=== PATIENT | female | born 1985 | race Caucasian/White ===

== ENCOUNTER 2017-06-29 10:39 | Inpatient (IN) | payer SELFPAY ==
[~2017-06-29] VITALS: Ht 167.6 cm; Wt 80.5 kg
[~2017-06-29 10:39] MED LIST: ACET325 PO; ADVI200C9 PO; SULF1TAB47 PO; TYLE3 PO
[2017-06-29 10:40] VITALS: BP 135/75; PULSE 100; RESP 20; TEMP 98.4; O2SAT 97
[2017-06-29] MEDS ORDERED: IOHEXOL 350 MG/ML 10 ML VIAL (for RAD DIAG) IVCONTRAST ONE (10:40)
[2017-06-29] MEDS ORDERED: ISOT20CA PO (10:58)
[2017-06-29] MEDS ORDERED: SODIUM CHLORIDE 0.9% FLUSH 10 ML FLUSH IVF PRN (11:15)
[2017-06-29] MEDS ORDERED: MORPHINE SULFATE 4 MG/ML INJ IV PUSH ONE (11:15)
[2017-06-29] MEDS ORDERED: ONDANSETRON HCL 4 MG/2 ML VIAL IM ONE (11:15)
--- NOTE | 2017-06-29 11:19 | PD ---
HPI . Abdominal pain Chief Complaint: GI Complaint Time Seen by Provider: 11:15 Travel History International Travel<30 days: No Contact w/Intl Traveler<30days: No Traveled to known affect area: No History of Present Illness HPI Patient presents complaining with abdominal pain. Onset was about a week and a half ago. It became acutely worse approximately 3 days ago. It is localized to the right lower quadrant. It is exacerbated by drinking hot tea certain movements. She denies any associated urinary tract symptoms. She denies any vaginal discharge or abnormal vaginal bleeding. She reports a normal appetite and no associated vomiting or diarrhea. [facility] Past Medical History Medical History: Denies Significant Hx Asthma: Yes ?: Not Past Surgical History Surgical History: No Previous Surgery Social History Alcohol Use: No Tobacco Use: Yes (1 PPD) Substance Use: No Allergies-Medications (Allergen,Severity, Reaction): Coded Allergies: No Known Allergies (Unverified , 06/29/17) Reported Meds & Prescriptions Reported Meds & Active Scripts Active Reported Zenatane (Isotretinoin) 20 Mg Cap 20 Mg PO DAILY Review of Systems Except as stated in HPI: all other systems reviewed are Neg General / Constitutional: No: Fever, Chills Gastrointestinal: Positive: Abdominal Pain, No: Nausea, Vomiting, Diarrhea, Loss of Appetite Genitourinary: Positive: Pelvic Pain, No: Urgency, Frequency, Dysuria, Discharge, Vaginal Bleeding Physical Exam Narrative GENERAL: Awake and alert and in no acute distress. SKIN: Warm and dry without rash or lesions. HEAD: Normocephalic/atraumatic. EYES: Pupils are equal. Extraocular movements are intact. NECK: Supple with full range of motion. CARDIOVASCULAR: Regular rate and rhythm. RESPIRATORY: Nonlabored respirations. ABDOMEN: Suprapubic tenderness, right greater than left. MUSCULOSKELETAL: Atraumatic. NEUROLOGICAL: Nonfocal. PSYCHIATRIC: Appropriate mood and affect. Data Data Last Documented VS Vital Signs Date Time Temp Pulse Resp B/P (MAP) Pulse Ox O2 Delivery O2 Flow Rate FiO2 06/29/17 10:40 98.4 100 20 135/75 (95) 97 Room Air Orders Orders Complete Blood Count With Diff (06/29/17 11:15) Basic Metabolic Panel (Bmp) (06/29/17 11:15) Gc And Chlamydia Pcr (06/29/17 11:15) Wet Prep Profile (06/29/17 11:15) Urinalysis - C+S If Indicated (06/29/17 11:15) Sodium Chloride 0.9% Flush (Ns Flush) (06/29/17 11:15) Ondansetron Inj (Zofran Inj) (06/29/17 11:15) Ed Urine Pregnancytest Poc (06/29/17 11:15) Morphine Inj (Morphine Inj) (06/29/17 11:15) MDM Medical Decision Making Medical Screen Exam Complete: Yes Emergency Medical Condition: Yes Differential Diagnosis Differential diagnosis of pelvic pain includes but is not limited to UTI, PID, ectopic , spontaneous AB, constipation, viral illness Narrative Course This patient presents with pelvic pain. It is localized to the right side than the left side. We will start with a MACHINE BRUSHER evaluation. If the etiology of her pelvic pain is not discovered by a MACHINE BRUSHER evaluation, she will probably need a CT. Diagnosis Primary Impression: Pelvic pain in female Toyin Dodson MD Jun 29, 2017 11:19
[2017-06-29 12:32] LABS: BLOOD, URINE NEG (NEG); GLUCOSE,URINE NEG (NEG); KETONE, URINE NEG (NEG); NITRITE,URINE NEG (NEG); PH, URINE 6.5 (5.0-8.5); SQUAMOUS EPITHELIAL CELL URINE <1 /hpf (0-5); URINE COLOR LIGHT-YELLOW (YELLW/STRAW)
[2017-06-29 12:34] LABS: COMMENT (UR) CULT NOT INDICATED; CULTURE IF INDICATED CULT NOT INDICATED
[2017-06-29 12:36] LABS: BASOPHIL % 0.3 % (0.0-2.0); EOSINOPHIL # 0.1 TH/MM3 (0-0.4); EOSINOPHIL % 0.9 % (0.0-4.0); HEMATOCRIT 43.4 % (35.0-46.0); HEMO FLAGS DIFF FINAL; LYMPH % 17.1 % (9.0-44.0); LYMPHOCYTE # 1.9 TH/MM3 (1.0-4.8); MEAN CELL VOLUME 85.6 FL (80.0-100.0); MEAN CORPUSCULAR HGB CONC 33.9 % (32.0-36.0); MONO % 8.7 % (0.0-8.0); PLATELET COUNT 332 TH/MM3 (150-450); RED BLOOD COUNT 5.07 MIL/MM3 (4.00-5.30); RED CELL DISTRIBUTION WIDTH 12.7 % (11.6-17.2); WHITE BLOOD COUNT 10.9 TH/MM3 (4.0-11.0)
[2017-06-29 12:59] LABS: BICARBONATE 25.9 MEQ/L (21.0-32.0); POTASSIUM 4.4 MEQ/L (3.5-5.1)
[2017-06-29] MEDS ORDERED: ONDANSETRON HCL 4 MG/2 ML VIAL IV PUSH ONE ×2 (13:15→17:30)
--- NOTE | 2017-06-29 14:14 | PD ---
Physical Exam Date Seen by Provider: Jun 29, 2017 Time Seen by Provider: 12:00 Narrative GENERAL: Well-nourished, well-developed female in no acute distress. Afebrile. Ambulatory. SKIN: Focused skin assessment warm/dry. HEAD: Normocephalic. EYES: No scleral icterus. No injection or drainage. NECK: Supple, trachea midline. No JVD or lymphadenopathy. CARDIOVASCULAR: Regular rate and rhythm without murmurs, gallops, or rubs. RESPIRATORY: Breath sounds equal bilaterally. No accessory muscle use. GASTROINTESTINAL: Abdomen soft, nondistended. Moderate tenderness to palpation of the right lower quadrant. Negative heel tap test. No peritoneal signs. No significant CVA tenderness. GENITOURINARY: Normal external genitalia without lesions or erythema. Vaginal vault with moderate greenish, yellow drainage. Cervical os was closed with the same drainage. No cervical motion tenderness. Uterus tender on the right aspect. Nonenlarged. Bilateral adnexa nontender without masses. Data Data Last Documented VS Vital Signs Date Time Temp Pulse Resp B/P (MAP) Pulse Ox O2 Delivery O2 Flow Rate FiO2 06/29/17 19:02 85 17 123/76 (92) 100 Room Air 06/29/17 10:40 98.4 Orders Orders Complete Blood Count With Diff (06/29/17 11:15) Basic Metabolic Panel (Bmp) (06/29/17 11:15) Gc And Chlamydia Pcr (06/29/17 11:15) Wet Prep Profile (06/29/17 11:15) Urinalysis - C+S If Indicated (06/29/17 11:15) Sodium Chloride 0.9% Flush (Ns Flush) (06/29/17 11:15) Ondansetron Inj (Zofran Inj) (06/29/17 11:15) Ed Urine Pregnancytest Poc (06/29/17 11:15) Morphine Inj (Morphine Inj) (06/29/17 11:15) Ct Abd/Pel W Iv Contrast(Rout) (06/29/17 ) Ondansetron Inj (Zofran Inj) (06/29/17 13:15) Iohexol 350 Inj (Omnipaque 350 Inj) (06/29/17 10:40) Azithromycin Powd Pack (Zithromax Powd P (06/29/17 15:45) Ceftriaxone Inj (Rocephin Inj) (06/29/17 15:45) Lidocaine 1% Inj (50 Ml) (Xylocaine 1% I (06/29/17 15:45) Oral Contrast - Adult (06/29/17 16:02) Oral Contrast - Adult (06/29/17 16:15) Diatrizoate Liq ( Gastrogopi Liq) (06/29/17 16:20) Ondansetron Inj (Zofran Inj) (06/29/17 17:30) Us Pelvis Comp W Transvaginal (06/29/17 ) Consult Bi Nfs (06/29/17 ) Levofloxacin 750 Mg Premix Inj (Levaquin (06/29/17 19:15) Metronidazole 500 Mg Inj (Flagyl 500 Mg (06/29/17 19:15) Nicotine 21 Mg Patch.24 Hr (Habitrol 21 (06/29/17 19:30) Consult General Surgery (06/29/17 ) Admit Order (Ed Use Only) (06/29/17 ) Vital Signs (Adult) Q4H (06/29/17 20:50) Diet Npo (06/30/17 Breakfast) Activity Oob With Assistance (06/29/17 20:50) Notify Dr: Other (06/29/17 20:50) Diet Heart Healthy (06/29/17 Dinner) Labs Laboratory Tests Test 06/29/17 12:04 06/29/17 12:10 06/29/17 14:10 White Blood Count 10.9 TH/MM3 Red Blood Count 5.07 MIL/MM3 Hemoglobin 14.7 GM/DL Hematocrit 43.4 % Mean Corpuscular Volume 85.6 FL Mean Corpuscular Hemoglobin 29.0 PG Mean Corpuscular Hemoglobin Concent 33.9 % Red Cell Distribution Width 12.7 % Platelet Count 332 TH/MM3 Mean Platelet Volume 7.7 FL Neutrophils (%) (Auto) 73.0 % Lymphocytes (%) (Auto) 17.1 % Monocytes (%) (Auto) 8.7 % Eosinophils (%) (Auto) 0.9 % Basophils (%) (Auto) 0.3 % Neutrophils # (Auto) 8.0 TH/MM3 Lymphocytes # (Auto) 1.9 TH/MM3 Monocytes # (Auto) 0.9 TH/MM3 Eosinophils # (Auto) 0.1 TH/MM3 Basophils # (Auto) 0.0 TH/MM3 CBC Comment DIFF FINAL Differential Comment Blood Urea Nitrogen 6 MG/DL Creatinine 0.49 MG/DL Random Glucose 86 MG/DL Calcium Level 9.1 MG/DL Sodium Level 137 MEQ/L Potassium Level 4.4 MEQ/L Chloride Level 104 MEQ/L Carbon Dioxide Level 25.9 MEQ/L Anion Gap 7 MEQ/L Estimat Glomerular Filtration Rate 146 ML/MIN Urine Color LIGHT-YELLOW Urine Turbidity CLEAR Urine pH 6.5 Urine Specific [place] 1.004 Urine Protein NEG mg/dL Urine Glucose (UA) NEG mg/dL Urine Ketones NEG mg/dL Urine Occult Blood NEG Urine Nitrite NEG Urine Bilirubin NEG Urine Urobilinogen LESS THAN 2.0 MG/DL Urine Leukocyte Esterase NEG Urine WBC LESS THAN 1 /hpf Urine Squamous Epithelial Cells <1 /hpf Microscopic Urinalysis Comment CULT NOT INDICATED Clue Cells (Wet Prep) NONE SEEN Vaginal Trichomonas (Wet Prep) NONE SEEN Vaginal Yeast (Wet Prep) NONE SEEN Chlamydia trachomatis DNA (PCR) DETECTED Neisseria gonorrhoeae DNA (PCR) NOT DETECTED MDM Medical Record Reviewed: Yes Supervised Visit with OMA: Yes Differential Diagnosis Pelvic pain, UTI, STD, PID, appendicitis unlikely Narrative Course Patient signed out to me pending labs and imaging results. In short, this is a 32-year-old female presents to the emergency room for evaluation of right lower quadrant abdominal pain for the past week. States it is especially worsened over the past several days. She denies any associated abnormal vaginal discharge, fever, chills, nausea, vomiting, or diarrhea. Vital signs stable. Physical exam reveals moderate tenderness to palpation of the right lower quadrant. No peritoneal signs or rebound tenderness. CBC, BMP, and UA are unremarkable. CT with IV contrast shows 3.7 cm complex masslike area in the right lower quadrant with surrounding infiltrate change. This is concerning for an abscess. The abscess is not clearly seen. An appendiceal abscess could have this appearance. This area appears separate from the right adnexa. Radiologist recommended second CT with oral contrast to better evaluate for possible appendicitis versus tubo-ovarian abscess. Ultrasound of the pelvic region shows a vague complex, 3 cm complex mass in the right lower quadrant that appears to be separate from the ovary. Second CT with oral contrast shows. I spoke to the surgeon seasonal sales associate, Dr. Galaviz, who recommends admission to medical service with consultation to surgery. He recommends starting patient on Levaquin and Flagyl. Patient will be admitted to the embedded processor, Dr. Cadena. She agrees to accept the patient to her service. Diagnosis Primary Impression: Appendiceal abscess Admitting Information Admitting Physician Requests: Admit Condition: Stable Julia Moraes Jun 29, 2017 14:14
[2017-06-29] MEDS ORDERED: AZITHROMYCIN PWD FOR SUSP 1 GM PACKET PO ONE (15:45)
[2017-06-29] MEDS ORDERED: cefTRIAXone 250 MG VIAL IM ONE (15:45)
[2017-06-29] MEDS ORDERED: LIDOCAINE HCL 1% 50 ML VIAL IM ONE (15:45)
[2017-06-29] MEDS ORDERED: DIATRIZOATE MEGLUM/DIATRIZOATE SOD 9 ML CUP ONE (16:20)
[2017-06-29 18:09] LABS: CHLAMYDIA PCR DETECTED (NOT DETECT); NEISSERIA PCR NOT DETECTED (NOT DETECT)
--- NOTE | 2017-06-29 18:20 | RADRPT ---
EXAM DATE/TIME: 06/29/2017 17:28 [facility] COMPARISON: CT ABDOMEN & PELVIS W CONTRAST, June 29, 2017, 14:58. INDICATIONS : Abscess. MEDICAL HISTORY : Asthma. SURGICAL HISTORY : . ENCOUNTER: Initial ACUITY: 1 day PAIN SCORE: 2/10 LOCATION: Bilateral pelvis MEASUREMENTS: UTERUS: 6.0 x 5.2 x 3.2 cm ENDOMETRIAL STRIPE: 6 mm RIGHT OVARY: 3.7 x 2.7 x 2.2 cm LEFT OVARY: 2.4 x 1.9 x 1.6 cm FINDINGS: UTERUS: The myometrium has homogeneous echotexture without mass. RIGHT OVARY: On the transabdominal images, there is a vague 3 cm complex mass seen in the right lower quadrant. On the transvaginal examination, the right ovary appears normal. A complex mass is not seen on the dixon svaginal examination. LEFT OVARY: Ovary contains no mass or significant cystic lesion. MISCELLANEOUS: There is minimal free fluid seen. CONCLUSION: 1. Vague complex 3 cm mass in the right lower quadrant seen on the transabdominal images. Its is nons pecific. The right ovary appears normal on the transvaginal examination suggesting the complex area i s not related to the right ovary. An inflamed appendix or fallopian tube could conceivably have this appearance. It is of uncertain etiology on this ultrasound examination. 2. The uterus and left ovary appear normal. Jeramy Monsalve MD on June 29, 2017 at 18:12 Board Certified Radiologist. This report was verified electronically.
--- NOTE | 2017-06-29 18:51 | RADRPT ---
EXAM DATE/TIME: 06/29/2017 14:58 [facility] COMPARISON: No previous studies available for comparison. INDICATIONS : Lower diffuse abdomen pain for four days. IV CONTRAST: 81 cc Omnipaque 300 (iohexol) IV ORAL CONTRAST: No oral contrast ingested. RADIATION DOSE: 6.91 CTDIvol (mGy) MEDICAL HISTORY : Asthma. SURGICAL HISTORY : None. ENCOUNTER: Initial ACUITY: 4 - 6 days PAIN SCALE: 6/10 LOCATION: Right lower quadrant TECHNIQUE: Volumetric scanning of the abdomen and pelvis was performed. Using automated exposure control and ad justment of the mA and/or kV according to patient size, radiation dose was kept as low as reasonably achievable to obtain optimal diagnostic quality images. DICOM format image data is available electro nically for review and comparison. FINDINGS: LOWER LUNGS: The visualized lower lungs are clear. LIVER: Homogeneous density without lesion. There is no dilation of the biliary tree. No calcified gallston es. SPLEEN: Normal size without lesion. PANCREAS: Within normal limits. KIDNEYS: Normal in size and shape. There is no mass, stone or hydronephrosis. ADRENAL GLANDS: Within normal limits. VASCULAR: There is no aortic aneurysm. BOWEL/MESENTERY: There is a 3.7 x 2.5 cm complex mass seen in the right lower quadrant with surrounding inflammatory c hange. This could be an abscess. The appendix is not seen. This area is adjacent to the cecum. This m ass is separate from the ovary. Right ovary appears normal in size and the more inferior posterior as pect of right pelvis. ABDOMINAL WALL: Within normal limits. RETROPERITONEUM: There is no lymphadenopathy. BLADDER: No wall thickening or mass. REPRODUCTIVE: The ovaries appear normal in size. There is moderate free fluid in the pelvis. INGUINAL: There is no lymphadenopathy or hernia. MUSCULOSKELETAL: Within normal limits for patient age. CONCLUSION: 3.7 cm complex masslike area in the right lower quadrant with surrounding inflammatory change. This c oncerning for an abscess. The appendix is not clearly seen. An appendiceal abscess could have this ap parent. This area appears separate from the right adnexa. Jeramy Monsalve MD on June 29, 2017 at 18:45 Board Certified Radiologist. This report was verified electronically.
[2017-06-29 19:02] VITALS: BP 123/76; PULSE 85; RESP 17; O2SAT 100
[2017-06-29] MEDS ORDERED: metroNIDAZOLE 500 MG INJ 100 ML IV ONE (19:15)
[2017-06-29] MEDS ORDERED: LEVOFLOXACIN 750 MG PREMIX INJ 150 ML IV ONE (19:15)
[2017-06-29] MEDS ORDERED: NICOTINE 21 MG/24 HR PATCH T-DERMAL ONE (19:30)
--- NOTE | 2017-06-29 21:19 | HHI.HP ---
HPI Service Critical Care Medicine Primary Care Physician No Primary Care Physician Admission Diagnosis appendiceal abscess Diagnosis: Travel History International Travel<30 Days: No Contact w/Intl Traveler <30 Da: No Traveled to Known Affected Are: No History of Present Illness 32-year-old female with past medical history of childhood asthma who presents to [facility] emergency department with 1 week history of gradual onset right lower quadrant pain. She states it waxes and wanes in severity. It is worse with cough and is tender to palpation. She says she previously had no nausea or vomiting associated with this but she did vomit after trying to take po contrast tonight. She denies dysuria, fever, vaginal discharge. ED pelvic exam revealed green vaginal discharge without cervical motion tenderness. Cervical swab + for chlamydia. Pelvic her sound demonstrates 3 cm mass in the right lower quadrant. Right ovary appeared normal. This was felt to have been related to inflamed appendix versus salpingitis. CT abdomen and pelvis demonstrates 3.7 cm complex mass in the right lower quadrant. Appendix was not clearly seen. It appears separate from the right adnexa. test is negative Review of Systems Gastrointestinal: COMPLAINS OF: Abdominal pain, Nausea, Vomiting Past Family Social History Allergies: Coded Allergies: No Known Allergies (Unverified , 06/29/17) Past Medical History Childhood asthma Acne He has had 1 prior with elective Past Surgical History None Reported Medications Accutane Family History Father has hypertension Maternal grandmother has diabetes Social History Smokes a pack of cigarettes per day No alcohol or illicit drug use Works at a [employer] Physical Exam Vital Signs Vital Signs Date Time Temp Pulse Resp B/P (MAP) Pulse Ox O2 Delivery O2 Flow Rate FiO2 06/29/17 19:02 85 17 123/76 (92) 100 Room Air 06/29/17 13:14 15 06/29/17 10:40 98.4 100 20 135/75 (95) 97 Room Air Physical Exam GENERAL: Well-nourished, well-developed alert female who is sitting up in ED gurney. She is tearful SKIN: Warm and dry. No rash HEAD: Atraumatic. Normocephalic. EYES: Pupils equal and round. No scleral icterus. No injection or drainage. ENT: No nasal bleeding or discharge. Mucous membranes pink and moist. NECK: Trachea midline. No JVD. CARDIOVASCULAR: Regular rate and rhythm. No murmurs rubs or gallops. RESPIRATORY: No accessory muscle use. Clear to auscultation. Breath sounds equal bilaterally. On room air GASTROINTESTINAL: Abdomen soft. Tender to palpation right lower quadrant. No rebound or guarding. No peritoneal signs. Bowel sounds present. MUSCULOSKELETAL: Extremities without clubbing, cyanosis, or edema. No obvious deformities. NEUROLOGICAL: Awake and alert. No obvious cranial nerve deficits. Motor grossly within normal limits. Normal speech. Laboratory Laboratory Tests Test 06/29/17 12:04 06/29/17 12:10 06/29/17 14:10 White Blood Count 10.9 Red Blood Count 5.07 Hemoglobin 14.7 Hematocrit 43.4 Mean Corpuscular Volume 85.6 Mean Corpuscular Hemoglobin 29.0 Mean Corpuscular Hemoglobin Concent 33.9 Red Cell Distribution Width 12.7 Platelet Count 332 Mean Platelet Volume 7.7 Neutrophils (%) (Auto) 73.0 Lymphocytes (%) (Auto) 17.1 Monocytes (%) (Auto) 8.7 Eosinophils (%) (Auto) 0.9 Basophils (%) (Auto) 0.3 Neutrophils # (Auto) 8.0 Lymphocytes # (Auto) 1.9 Monocytes # (Auto) 0.9 Eosinophils # (Auto) 0.1 Basophils # (Auto) 0.0 CBC Comment DIFF FINAL Differential Comment Blood Urea Nitrogen 6 Creatinine 0.49 Random Glucose 86 Calcium Level 9.1 Sodium Level 137 Potassium Level 4.4 Chloride Level 104 Carbon Dioxide Level 25.9 Anion Gap 7 Estimat Glomerular Filtration Rate 146 Urine Color LIGHT-YELLOW Urine Turbidity CLEAR Urine pH 6.5 Urine Specific [place] 1.004 Urine Protein NEG Urine Glucose (UA) NEG Urine Ketones NEG Urine Occult Blood NEG Urine Nitrite NEG Urine Bilirubin NEG Urine Urobilinogen LESS THAN 2.0 Urine Leukocyte Esterase NEG Urine WBC LESS THAN 1 Urine Squamous Epithelial Cells <1 Microscopic Urinalysis Comment CULT NOT INDICATED Clue Cells (Wet Prep) NONE SEEN Vaginal Trichomonas (Wet Prep) NONE SEEN Vaginal Yeast (Wet Prep) NONE SEEN Chlamydia trachomatis DNA (PCR) DETECTED Neisseria gonorrhoeae DNA (PCR) NOT DETECTED Result Diagram: 06/29/17 1204 06/29/17 1204 Caprini VTE Risk Assessment Caprini VTE Risk Assessment: Mod/High Risk (score >= 2) Caprini Risk Assessment Model Point Value = 1 Point Value = 2 Point Value = 3 Point Value = 5 Age 41-60 Minor surgery BMI > 25 kg/m2 Swollen legs Varicose veins or History of unexplained or recurrent spontaneous Oral contraceptives or hormone replacement Sepsis (< 1 month) Serious lung disease, including pneumonia (< 1 month) Abnormal pulmonary function Acute myocardial infarction Congestive heart failure (< 1 month) History of inflammatory bowel disease Medical patient at bed rest Age 61-74 Arthroscopic surgery Major open surgery (> 45 min) Laparoscopic surgery (> 45 min) Malignancy Confined to bed (> 72 hours) Immobilizing plaster cast Central venous access Age >= 75 History of VTE Family history of VTE Factor V Leiden Prothrombin [id number] Lupus anticoagulant Anticardiolipin antibodies Elevated serum homocysteine Heparin-induced thrombocytopenia Other congenital or acquired thrombophilia Stroke (< 1 month) Elective arthroplasty Hip, pelvis, or leg fracture Acute spinal cord injury (< 1 month) Prophylaxis Regimen Total Risk Factor Score Risk Level Prophylaxis Regimen 0-1 Low Early ambulation 2 Moderate Order ONE of the following: *Sequential Compression Device (SCD) *Heparin 5000 units SQ BID 3-4 Higher Order ONE of the following medications: *Heparin 5000 units SQ TID *Enoxaparin/Lovenox 40 mg SQ daily (WT < 150 kg, CrCl > 30 mL/min) *Enoxaparin/Lovenox 30 mg SQ daily (WT < 150 kg, CrCl > 10-29 mL/min) *Enoxaparin/Lovenox 30 mg SQ BID (WT < 150 kg, CrCl > 30 mL/min) AND/OR *Sequential Compression Device (SCD) 5 or more Highest Order ONE of the following medications: *Heparin 5000 units SQ TID (Preferred with Epidurals) *Enoxaparin/Lovenox 40 mg SQ daily (WT < 150 kg, CrCl > 30 mL/min) *Enoxaparin/Lovenox 30 mg SQ daily (WT < 150 kg, CrCl > 10-29 mL/min) *Enoxaparin/Lovenox 30 mg SQ BID (WT < 150 kg, CrCl > 30 mL/min) AND *Sequential Compression Device (SCD) Assessment and Plan Problem List: (1) Chlamydia ICD Code: A74.9 - Chlamydial infection, unspecified Status: Acute (2) Appendiceal abscess ICD Code: K35.3 - Acute appendicitis with localized peritonitis Status: Acute (3) Tobacco abuse ICD Code: Z72.0 - Tobacco use Status: Chronic Assessment and Plan NEURO: As needed for pain. Morphine as needed for breakthrough pain. RESP: History of childhood asthma Tobacco abuse IS q2 hour awake. Albuterol as needed. CV: Monitor BP/heart rate. Currently hemodynamic stable. GI/SILVER BRAZER/ID: RLQ abscess, probable appendiceal abscess. Chlamydia Trachomatis Received Azithromycin 1 gram po in the ED to cover chlamydia. Will treat for appendiceal abscess with cefoxitin and metronidazole. test negative Nothing by mouth Dr. Galaviz following. FEN/RENAL: Normal renal function. D5 0.45 NaCl with 20 mEq KCl per liter HEME: No acute hematologic issues ENDO: Euglycemic PROPH: SCDs for DVT prophylaxis. famotidine for stress ulcer prophylaxis. ACCESS: Peripheral IV Level 2 H and P Patient is currently hemodynamically stable and will be admitted to the floor. Dr. Galaviz to follow. Edith Cadena MD Jun 29, 2017 21:19
[2017-06-29] MEDS: D5-1/2 NS + KCL 20 MEQ INJ 1,000 ML IV SCH ×2 (21:57→23:16)
[2017-06-29] MEDS ORDERED: SENNOSIDES 8.6 MG TAB PO PRN (22:00)
[2017-06-29] MEDS ORDERED: ACETAMINOPHEN 325 MG TAB PO PRN (22:00)
[2017-06-29] MEDS ORDERED: SODIUM CHLORIDE 0.9% FLUSH 10 ML FLUSH IV FLUSH PRN (22:00)
[2017-06-29] MEDS ORDERED: BISACODYL 10 MG SUPP RECTAL PRN (22:00)
[2017-06-29] MEDS ORDERED: ACETAMINOPHEN/HYDROcodone 325 MG/5 MG TAB PO PRN (22:00)
[2017-06-29] MEDS ORDERED: ONDANSETRON HCL 4 MG/2 ML VIAL IV PUSH PRN (22:00)
[2017-06-29] MEDS ORDERED: RESP: ALBUTEROL 2.5 MG/3 ML NEB (PRN) INH (22:00)
[2017-06-29] MEDS ORDERED: LACTULOSE SYRUP 20 GM/30 ML CUP PO PRN (22:00)
[2017-06-29] MEDS ORDERED: MAGNESIUM HYDROXIDE SUSP 30 ML CUP PO PRN (22:00)
[2017-06-29] MEDS: ceFOXitin INJ 2 GM in SODIUM CHLORIDE 0.9% INJ 100 ML IV SCH (22:00)
[2017-06-29] MEDS ORDERED: MISCELLANEOUS NURSING INFORMATION XX SCH (22:00)
[2017-06-29] MEDS ORDERED: CHLORHEXIDINE GLUCONATE 2 % 1 PACK (2 CLOTHS) TOP PRN (22:00)
--- NOTE | 2017-06-29 22:11 | MB ---
cc: WILMAN JJ DATE OF CONSULTATION 06/29 17. REASON FOR ADMISSION Right lower quadrant pelvic abscess, questionable appendicitis versus ovarian abscess. HISTORY OF PRESENT ILLNESS This is a 32-year-old female who has been ill for the last 10-14 days complaining of some right lower quadrant pain. She said she kind of toughed it out and then the last three days it got really bad and she came to the emergency room. Initial imaging questioned either ovarian or tubal process versus appendix, although they could not visualize the appendix. Surgery was consulted as well as MOVEMENT ASSEMBLER to evaluate the patient. No nausea and vomiting eating normally and having normal bowel movements PAST MEDICAL HISTORY and ROS She has no previous surgeries. No chronic medical problems. She has had no cardiac, pulmonary issues or issues.Patient does not have any neurologic events No chest pain or shortness of breath MEDICATIONS She does not take any medications. ALLERGIES Not allergic to anything. PHYSICAL EXAMINATION GENERAL: She is lying in the room. Pleasant alert talkative female concerned with her medical condition NECK: Supple. Pupils equal round reactive CHEST: Clear. No Rales rhonchi HEART: Regular rate. HEENT: Pupils equal, round, reactive. ABDOMEN: Mildly sore in bilateral quadrant, more on the right than the left. No rebound guarding EXTREMITIES: Moves all extremities without clubbing, cyanosis or edema. NEUROLOGIC: She is alert, oriented somewhat tearful, concerned with the medical condition. LABORATORY DATA White count 10, H&H of 14 and 43. Chemistry essentially normal. IMAGING STUDIES I reviewed with Dr. Jeramy Monsalve. Pelvic ultrasound showed the complex area near the ovary, ? inflamed tube, fallopian tube could not be seen or inflamed appendix could not be seen. The CT scan of the abdomen both with contrast and without contrast did not definitely provide a diagnosis. This is suspicious for a pelvic abscess, unknown etiology, possibly tubo-ovarian versus appendix. It measures just about 2 cm in size. ASSESSMENT A 32-year-old healthy female who has had about a 10-day to 14-day some abdominal discomforts that got worse in the last three days. She certainly could have a perforated appendicitis that is sealed off. She has a normal white count. She has no GI or symptoms at this time. Most of her pain and discomfort is in her right lower quadrant at this time. PLAN I would start IV antibiotics, watch her and treat her nonoperatively at this point. I will await MOVEMENT ASSEMBLER input as well. If this is a perforated appendicitis, then treating her with antibiotic therapy with doing an interval appendectomy and 6-8 weeks would be standard therapy. if this abscess increases in size on antibiotic therapy then radiology could attempt percutaneous drainage. At this time, the abscess was too small to attempt drainage. Surgery will follow during this admission. MD ORLIN Ramirez/ /9:33 PM /9:59 PM MEIR
[2017-06-29] MEDS ORDERED: MORPHINE SULFATE 2 MG/ML INJ IV PUSH PRN (22:15)
[2017-06-29 22:17] VITALS: BP 95/62; PULSE 68; RESP 16; TEMP 98.5; O2SAT 96
[2017-06-30] MEDS: metroNIDAZOLE 500 MG INJ 100 ML IV SCH ×3 (01:23→17:14)
[2017-06-30] MEDS ORDERED: CHLORHEXIDINE GLUCONATE 2 % 1 PACK (2 CLOTHS) TOP SCH (04:00)
[2017-06-30] MEDS: ceFOXitin INJ 2 GM in SODIUM CHLORIDE 0.9% INJ 100 ML IV SCH (04:43)
[2017-06-30 04:51] VITALS: BP 108/60; PULSE 80; RESP 16; TEMP 98.5; O2SAT 96
[2017-06-30 05:04] LABS: BICARBONATE 24.4 MEQ/L (21.0-32.0); POTASSIUM 3.6 MEQ/L (3.5-5.1)
[2017-06-30 05:18] LABS: APTT (PATIENT) 29.5 SEC (24.3-30.1); PROTHROMBIN TIME - PATIENT 11.4 SEC (9.8-11.6)
[2017-06-30 05:23] LABS: AUTOMATED NEUTROPHIL # 9.2 TH/MM3 (1.8-7.7); BASOPHIL % 0.2 % (0.0-2.0); EOSINOPHIL % 0.4 % (0.0-4.0); HEMATOCRIT 38.9 % (35.0-46.0); HEMO FLAGS DIFF FINAL; LYMPH % 11.7 % (9.0-44.0); LYMPHOCYTE # 1.3 TH/MM3 (1.0-4.8); MEAN CELL VOLUME 84.2 FL (80.0-100.0); MEAN CORPUSCULAR HEMOGLOBIN 29.2 PG (27.0-34.0); MEAN CORPUSCULAR HGB CONC 34.7 % (32.0-36.0); MONO % 7.1 % (0.0-8.0); NEUT % 80.6 % (16.0-70.0); PLATELET COUNT 329 TH/MM3 (150-450); RED BLOOD COUNT 4.62 MIL/MM3 (4.00-5.30); RED CELL DISTRIBUTION WIDTH 12.1 % (11.6-17.2); WHITE BLOOD COUNT 11.4 TH/MM3 (4.0-11.0)
[2017-06-30 08:00] VITALS: BP 111/59; PULSE 72; RESP 20; TEMP 98.5; O2SAT 99
[2017-06-30 08:03] VITALS: PULSE 73
[2017-06-30] MEDS ORDERED: DOCUSATE SODIUM 50 MG/SENNA 8.6 MG TAB PO SCH (09:00)
[2017-06-30] MEDS ORDERED: SODIUM CHLORIDE 0.9% FLUSH 10 ML FLUSH IV FLUSH SCH (09:00)
[2017-06-30] MEDS ORDERED: FAMOTIDINE 20 MG/2 ML VIAL IV PUSH SCH (09:00)
[2017-06-30 12:00] VITALS: BP 109/67; PULSE 81; RESP 20; TEMP 98.4; O2SAT 99
--- NOTE | 2017-06-30 13:32 | HHI.PR ---
Subjective Remarks Says she feels improved today. Less abdominal pain. No fever overnight had some chills. No nausea, vomiting, diarrhea or constipation. She is able to tolerate food at this time. Objective Vitals Vital Signs Date Time Temp Pulse Resp B/P (MAP) Pulse Ox O2 Delivery O2 Flow Rate FiO2 06/30/17 12:00 98.4 81 20 109/67 (81) 99 06/30/17 08:03 73 06/30/17 08:00 98.5 72 20 111/59 (76) 99 06/30/17 04:51 98.5 80 16 108/60 (76) 96 06/29/17 22:23 06/29/17 22:17 98.5 68 16 95/62 (73) 96 06/29/17 19:02 85 17 123/76 (92) 100 Room Air I/O 06/29/17 06/29/17 06/29/17 06/30/17 06/30/17 06/30/17 07:00 15:00 23:00 07:00 15:00 23:00 Intake Total 100 ml 200 ml 1100 ml Balance 100 ml 200 ml 1100 ml Intake IV Total 100 ml 200 ml 1100 ml # Bowel Movements 0 Result Diagram: 06/30/17 0435 06/30/17 0435 Imaging Last Impressions Pelvis Ultrasound 06/29/17 0000 Signed Impressions: Service Date/Time: June 17:28 - CONCLUSION: 1. Vague complex 3 cm mass in the right lower quadrant seen on the transabdominal images. Its is nonspecific. The right ovary appears normal on the transvaginal examination suggesting the complex area is not related to the right ovary. An inflamed appendix or fallopian tube could conceivably have this appearance. It is of uncertain etiology on this ultrasound examination. 2. The uterus and left ovary appear normal. Jeramy Monsalve MD Abdomen/Pelvis CT 06/29/17 0000 Signed Impressions: Service Date/Time: June 14:58 - CONCLUSION: 3.7 cm complex masslike area in the right lower quadrant with surrounding inflammatory change. This concerning for an abscess. The appendix is not clearly seen. An appendiceal abscess could have this apparent. This area appears separate from the right adnexa. Jeramy Monsalve MD Objective Remarks GENERAL: Well-nourished, well-developed alert female who is sitting up in ED [facility]. She is tearful CARDIOVASCULAR: Regular rate and rhythm. No murmurs rubs or gallops. RESPIRATORY: No accessory muscle use. Clear to auscultation. Breath sounds equal bilaterally. On room air GASTROINTESTINAL: Abdomen soft. Mild tenderness to palpation right lower quadrant. No rebound or guarding. No peritoneal signs. Bowel sounds present. MUSCULOSKELETAL: Extremities without clubbing, cyanosis, or edema. No obvious deformities. NEUROLOGICAL: Awake and alert. No obvious cranial nerve deficits. Motor grossly within normal limits. Normal speech. A/P Assessment and Plan NEURO: As needed for pain. Morphine as needed for breakthrough pain. RESP: History of childhood asthma Tobacco abuse IS q2 hour awake. Albuterol as needed. Stable at this time CV: Monitor BP/heart rate. Currently hemodynamic stable. GI/LACING PRESSER/ID: RLQ abscess, probable appendiceal abscess. Chlamydia Trachomatis Received Azithromycin 1 gram po in the ED to cover chlamydia. Will treat for appendiceal abscess with cefoxitin and metronidazole. Currentl;y on levaquin test negative Dr. Galaviz following. Doesn't recommend surgery at this time. If abscess is worsening then can have IR drain it. Continue antibiotics at this time. Advance diet as tolerated. Per surgeon consult floors buffer for evaluation as well. FEN/RENAL: Normal renal function. DC D5 0.45 NaCl with 20 mEq KCl per liter as patient is eating now and tolerates food./ Monitor lytes and replace as need. HEME: No acute hematologic issues ENDO: Euglycemic PROPH: SCDs for DVT prophylaxis. famotidine for stress ulcer prophylaxis. Discussed with the patient, nurse Discharge when improved and cleared by consultants Carmelina Aparicio MD Jun 30, 2017 13:32
[2017-06-30 16:00] VITALS: BP 116/58; PULSE 71; RESP 20; TEMP 98.7; O2SAT 99
[2017-06-30] MEDS ORDERED: NICOTINE 21 MG/24 HR PATCH T-DERMAL SCH (17:05)
[2017-06-30] MEDS ORDERED: LEVA750T9 PO (17:11)
[2017-06-30] MEDS ORDERED: METR-1 PO (17:11)
[2017-06-30] MEDS ORDERED: ALPRAZolam 0.5 MG TAB PO ONE (17:15)
--- NOTE | 2017-06-30 17:16 | HHI.DCPOC ---
Discharge Care Plan Goals to Promote Your Health * To prevent worsening of your condition and complications * To maintain your health at the optimal level Directions to Meet Your Goals Take your medications as prescribed Follow your dietary instruction Follow activity as directed Keep your appointments as scheduled Take your immunizations and boosters as scheduled If your symptoms worsen call your PCP, if no PCP go to Urgent Care Center or Emergency Room Smoking is Dangerous to Your Health. Avoid second hand smoke Call the 24-hour hour crisis hotline for domestic abuse at Carmelina Aparicio MD Jun 30, 2017 17:16
[2017-06-30] MEDS ORDERED: NICO21DI25 T-DERMAL (17:22)
--- NOTE | 2017-06-30 17:50 | HHI.PR ---
cc: Wilman Galaviz MD Subjective Subjective Notes PROGRESS NOTE FOR SURGICAL ATTENDING, DR. WILMAN GALAVIZ Resting in bed Upset if she needs to stay tonight Objective Vitals/I&O Vital Signs Date Time Temp Pulse Resp B/P (MAP) Pulse Ox O2 Delivery O2 Flow Rate FiO2 06/30/17 16:00 98.7 71 20 116/58 (77) 99 06/29/17 19:02 Room Air Labs Laboratory Tests Test 06/30/17 04:35 White Blood Count 11.4 Red Blood Count 4.62 Hemoglobin 13.5 Hematocrit 38.9 Mean Corpuscular Volume 84.2 Mean Corpuscular Hemoglobin 29.2 Mean Corpuscular Hemoglobin Concent 34.7 Red Cell Distribution Width 12.1 Platelet Count 329 Mean Platelet Volume 8.0 Neutrophils (%) (Auto) 80.6 Lymphocytes (%) (Auto) 11.7 Monocytes (%) (Auto) 7.1 Eosinophils (%) (Auto) 0.4 Basophils (%) (Auto) 0.2 Neutrophils # (Auto) 9.2 Lymphocytes # (Auto) 1.3 Monocytes # (Auto) 0.8 Eosinophils # (Auto) 0.0 Basophils # (Auto) 0.0 CBC Comment DIFF FINAL Differential Comment Prothrombin Time 11.4 Prothromb Time International Ratio 1.0 Activated Partial Thromboplast Time 29.5 Blood Urea Nitrogen 6 Creatinine 0.48 Random Glucose 116 Calcium Level 8.4 Sodium Level 136 Potassium Level 3.6 Chloride Level 104 Carbon Dioxide Level 24.4 Anion Gap 8 Estimat Glomerular Filtration Rate 150 Radiology Last Impressions Pelvis Ultrasound 06/29/17 0000 Signed Impressions: Service Date/Time: June 17:28 - CONCLUSION: 1. Vague complex 3 cm mass in the right lower quadrant seen on the transabdominal images. Its is nonspecific. The right ovary appears normal on the transvaginal examination suggesting the complex area is not related to the right ovary. An inflamed appendix or fallopian tube could conceivably have this appearance. It is of uncertain etiology on this ultrasound examination. 2. The uterus and left ovary appear normal. Jeramy Monsalve MD Abdomen/Pelvis CT 06/29/17 0000 Signed Impressions: Service Date/Time: June 14:58 - CONCLUSION: 3.7 cm complex masslike area in the right lower quadrant with surrounding inflammatory change. This concerning for an abscess. The appendix is not clearly seen. An appendiceal abscess could have this apparent. This area appears separate from the right adnexa. Jeramy Monsalve MD Cardiovascular: Regular Lungs: Clear Abdomen: Non-distended, Non-tender Extremities: No edema A/P Assessment and Plan 32 year old female with abdominal pain; ?? perforated appendicitis -Regular diet -Continue PO antibiotics -Follow up with Dr. Galaviz in about 2-3 weeks -GS clear for DC; discussed with Dr. Aparicio Attending Statement PROGRESS NOTE FOR SURGICAL ATTENDING, DR. WILMAN GALAVIZ Feels much better she has perforated appendicitis With contained abscess treat her with p.o. antibiotics follow up in my office in 2 weeks I agree with above assessment and plan. The exam, history, and the medical decision-making described in the above note were completed with the assistance of the mid-level provider. I reviewed and agree with the findings presented. I attest that I had a [id number] encounter with the patient on the same day, and personally performed and documented my assessment and findings in the medical record. The following services were provided during this hospital visit: Chart data review, vital sign assessments/reviewing monitor data Review of consultations notes if present. Medication orders/review and/or management Ordering and/or reviewing lab tests Ordering and/or interpreting/reviewing x-rays and/or diagnostic studies Care of the patient and discussion of the patient with the care team Documentation time To help prompt me to consider important information that might be impacting today's encounter and assessment, information from prior notes written by myself or my colleagues may have been "brought forward/copy and pasted" into today's note. [place] Le Jun 30, 2017 17:50 Wilman Galaviz MD Jun 30, 2017 18:59
[2017-06-30] MEDS ORDERED: REMOVE OLD NICODERM (NICOTINE) PATCH T-DERMAL SCH (21:00)
[2017-06-30] MEDS ORDERED: LEVOFLOXACIN 750 MG PREMIX INJ 150 ML IV SCH (21:00)
== END 2017-06-30 19:25 | disposition home or self-care (01) | DRG 373 ==
LOC: NEPD 10:39 → NEDA 20:52 → N05B 21:50
PROVIDERS: ADMIT Hospitalist; ATTEND Hospitalist
DX: K35.3 Acute appendicitis with localized peritonitis (principal); A74.9 Chlamydial infection, unspecified; F17.210 Nicotine dependence, cigarettes, uncomplicated
CPT/HCPCS: 74177; 76830; 76856; 80048; 81001; 84703; 85025; 85610; 85730; 87210; 87491; 87591; 96365; 96372; 96375; 96376; J0694; J0696; J1956; J2270; J2405; J3480; Q9963; Q9967